=== PATIENT | male | born 1925 | race African-American/Black ===

== ENCOUNTER 2016-11-15 13:02 | Emergency (ER) | payer MEDICARE, OTHER ==
[~2016-11-15 13:02] MED LIST: ARICEPT5 M1 PO; ASPIRIN EC81 M1 PO; BACTRIM DS TABL1 TA1 PO; CIPRO PO; CYANOCOBAL1000 MCG/M INJ; DARVOCET-N 1001 TAB PO; DITROPAN5 MG PO; FISH OIL 1,0001 CA2 PO; FISH OIL 1,0001 CAP PO; FLOMAX0.4 M1 PO; FLOMAX0.4 MG PO; LASIX20 MG PO; LIPITOR40 MG PO; NO MEDICATIONS; NORVASC2.5 MG PO; REMERON15 MG PO; VITAMIN B-1000 MCG/1 IM
== END 2016-11-15 15:15 | disposition home or self-care (01) ==
LOC: CED 13:02
DX: J02.9 Acute pharyngitis, unspecified (principal); F03.90 Unspecified dementia, unspecified severity, without behavioral disturbance, psychotic disturbance, mood disturbance, and anxiety; Z98.890 Other specified postprocedural states
CPT/HCPCS: 87651; 99283